=== PATIENT | female | born 1985 | race Caucasian/White ===

== ENCOUNTER 2019-09-16 19:24 | Emergency (ER) | payer MEDICAID ==
[~2019-09-16] VITALS: Ht 162.6 cm; Wt 86.0 kg
[2019-09-16 19:42] VITALS: BP 144/84
== END 2019-09-16 22:46 | disposition left against medical advice (07) ==
LOC: ER 19:24
DX: Z53.21 Procedure and treatment not carried out due to patient leaving prior to being seen by health care provider (principal)